=== PATIENT | female | born 1980 | race Caucasian/White ===

== ENCOUNTER 2018-02-08 13:20 | Emergency (ER) | payer OTHER ==
[~2018-02-08] VITALS: Ht 144.8 cm; Wt 99.8 kg
[~2018-02-08 13:20] MED LIST: ADVAIR HFA 230M12 GM INH; ALBUTEROL2.5 MG/0.1 INH; ENOXAPARIN40 MG/0.1 SUBQ; HYDROCODONE-AP1 EAC6 PO; IBUPROFEN 600600 M1 PO; KEFLEX500 M1 PO; LIORESAL 10 MG10 MG PO; MIRALAX17 GM PO; ONDANSETRON HCL4 M2 PO; OXYCODONE HCL 55 MG PO; PERCOCET 10-321 EACH PO; PERCOCET 5-3251 EACH PO; ROBAXIN 750 MG750 MG PO; TYLENOL325 MG PO; VENTOLIN HFA 1818 GM INH
[2018-02-08] MEDS ORDERED: HYDROCODONE-AP1 EAC6 PO (14:34)
[2018-02-08] MEDS ORDERED: CRUTCHES MISCELL (14:35)
== END 2018-02-08 15:08 | disposition home or self-care (01) ==
LOC: ER 13:20
DX: S93.401A Sprain of unspecified ligament of right ankle, initial encounter (principal); S83.91XA Sprain of unspecified site of right knee, initial encounter; M25.511 Pain in right shoulder; J45.909 Unspecified asthma, uncomplicated; G89.4 Chronic pain syndrome; M19.90 Unspecified osteoarthritis, unspecified site; Z88.1 Allergy status to other antibiotic agents; Z88.0 Allergy status to penicillin; Z88.8 Allergy status to other drugs, medicaments and biological substances; Z91.040 Latex allergy status; W10.9XXA Fall (on) (from) unspecified stairs and steps, initial encounter; Y93.89 Activity, other specified; Y92.89 Other specified places as the place of occurrence of the external cause; Y99.8 Other external cause status

== ENCOUNTER 2018-12-24 20:16 | Emergency (ER) | payer OTHER ==
[~2018-12-24] VITALS: Ht 147.3 cm; Wt 102.1 kg
[~2018-12-24 20:16] MED LIST changes: +CRUTCHES MISCELL
[2018-12-24] MEDS ORDERED: IBUPROFEN 800800 M1 PO (20:32)
[2018-12-24] MEDS ORDERED: ACETAMINOPHEN500 MG PO (20:32)
[2018-12-24] MEDS ORDERED: MOBIC7.5 MG PO (20:52)
[2018-12-24 21:35] VITALS: BP 147/63
== END 2018-12-24 21:37 | disposition home or self-care (01) ==
LOC: ER 20:16
DX: S83.91XA Sprain of unspecified site of right knee, initial encounter (principal); S93.601A Unspecified sprain of right foot, initial encounter; J45.909 Unspecified asthma, uncomplicated; G89.29 Other chronic pain; L40.50 Arthropathic psoriasis, unspecified; Z96.643 Presence of artificial hip joint, bilateral; Z79.899 Other long term (current) drug therapy; Z88.0 Allergy status to penicillin; Z88.1 Allergy status to other antibiotic agents; Z88.2 Allergy status to sulfonamides; Z91.040 Latex allergy status; W50.2XXA Accidental twist by another person, initial encounter; Y93.61 Activity, american tackle football; Y92.39 Other specified sports and athletic area as the place of occurrence of the external cause; Y99.8 Other external cause status

== ENCOUNTER 2020-07-26 17:01 | Emergency (ER) | payer OTHER ==
[~2020-07-26] VITALS: Ht 144.8 cm; Wt 106.6 kg
[~2020-07-26 17:01] MED LIST changes: +ACETAMINOPHEN500 MG PO; +IBUPROFEN 800800 M1 PO; +MOBIC7.5 MG PO
[2020-07-26] MEDS ORDERED: METHOCARBAMOL500 M2 PO (17:12)
[2020-07-26] MEDS ORDERED: HYDROCODON-ACE1 EAC7 PO (17:13)
[2020-07-26] MEDS ORDERED: CYCLOBENZAPRINE10 MG PO (17:13)
[2020-07-26] MEDS ORDERED: BUSPIRONE HCL10 MG PO (17:13)
[2020-07-26] MEDS ORDERED: REMERON 30 MG T30 M1 PO (17:14)
[2020-07-26] MEDS ORDERED: SERTRALINE HCL100 MG PO (17:14)
[2020-07-26] MEDS ORDERED: ABILIFY 2 MG2 M1 PO (17:16)
[2020-07-26] MEDS ORDERED: FEOSOL325 M1 PO (17:17)
[2020-07-26] MEDS ORDERED: DESYREL150 MG PO (17:19)
[2020-07-26 20:13] VITALS: BP 130/0
== END 2020-07-26 20:10 | disposition home or self-care (01) ==
LOC: ER 17:01
DX: M25.552 Pain in left hip (principal); M25.572 Pain in left ankle and joints of left foot; M25.562 Pain in left knee; J45.909 Unspecified asthma, uncomplicated; Z79.899 Other long term (current) drug therapy; Z79.1 Long term (current) use of non-steroidal anti-inflammatories (NSAID); Z88.0 Allergy status to penicillin; Z88.1 Allergy status to other antibiotic agents; Z88.2 Allergy status to sulfonamides; Z91.040 Latex allergy status

== ENCOUNTER 2021-09-13 23:40 | Emergency (ER) | payer OTHER ==
[~2021-09-13] VITALS: Ht 157.5 cm; Wt 129.9 kg
--- NOTE | ~2021-09-13 | EMS ---
[facility] [address] [place] [address] EMS Patient Care Report Name: KEVIN GREEN [id number] Admission: 09/13/21 Attend Phys: Discharge: Date of : 80 Report #: [id number] THIS REPORT FOR: //name// Report Transmitted: 09/14/2021 00:01 EMS Care Summary [place], [place]/[facility] Incident [id number] @ 09/13/2021 23:12 Incident Location [address] [place] [address] Patient KEVIN GREEN Female, 40 Years 1980 Patient Address Chief Complaint skin rash Disposition Transported No Lights/[place] Dispatch Reason Sick Person Transported To [facility] Narrative pt found ambulatory in the lobby. she is a&o, c/o pain in joints and skin rash x 2 days. pt denies eating anything she is allergic to, or exposure to a new product she could be allergic to. she req eval at closest ER. pt is able to seat self on cot, VS, transport w/o change. report to staff . Initial Vitals @23:27P: 93,R: 18,BP: 128/73,Pain: 7/10,GCS: 15,SpO2: 98,Revised Trauma: 12, Assessments @23:20MENTAL:No Abnormalities,SKIN:Other,HEENT:Head/Face: No Abnormalities,LUNG SOUNDS:ABDOMEN:PELVIS//GI:EXTREMITIES:PULSE:NEURO:No Abnormalities, Impression [facility] [address] [place] [address] EMS Patient Care Report Name: KEVIN GREEN Room #: REG [facility]#: [id number] Admission: 09/13/21 Attend Phys: Discharge: Date of : 80 Report #: [id number] Skin infection Procedures @23:20 ALS Assessment @23:25 Stretcher Response: Unchanged Timeline 23:09,Call Received 23:09,Dispatch Notified 23:12,Dispatched 23:12,En Route 23:19,On Scene 23:20,At Patient 23:20,ALS Assessment, 23:25,Stretcher,Response: Unchanged 23:27,BP: 128/73 M,PULSE: 93,RR: 18 R,SPO2: 98 Ox,ETCO2: ,BG: ,PAIN: 7,GCS: 15, 23:29,Depart Scene 23:35,At Destination 23:50,Call Closed Disclaimer v1.1 Copyright 2021 [employer] This EMS Care Summary contains data elements from the applicable legal record (which may be displayed differently). It is designed to provide pertinent information for the following purposes: continuity of care, clinical quality, and state data reporting. The complete legal record is available to ED staff and administrators of the receiving hospital in [employer] Patient Tracker. All data is provided "as is."
--- NOTE | ~2021-09-13 | EMS ---
[facility] [address] [place] [address] EMS Patient Care Report Name: KEVIN GREEN Room #: [facility] Diane#: [id number] Admission: 09/13/21 Attend Phys: Discharge: 09/14/21 Date of : 80 Report #: [id number] THIS REPORT FOR: //name// Report Transmitted: 09/14/2021 06:43 EMS Care Summary [place], [place]/[facility] Incident [id number] @ 09/13/2021 23:12 Incident Location [address] [place] [address] Patient KEVIN GREEN Female, 40 Years 1980 Patient Address Chief Complaint skin rash Disposition Transported No Lights/[employer] Dispatch Reason Sick Person Transported To [facility] Narrative pt found ambulatory in the lobby. she is a&o, c/o pain in joints and skin rash x 2 days. pt denies eating anything she is allergic to, or exposure to a new product she could be allergic to. she req eval at closest ER. pt is able to seat self on cot, VS, transport w/o change. report to staff . Initial Vitals @23:27P: 93,R: 18,BP: 128/73,Pain: 7/10,GCS: 15,SpO2: 98,Revised Trauma: 12, Assessments @23:20MENTAL:No Abnormalities,SKIN:Other,HEENT:Head/Face: No Abnormalities,LUNG SOUNDS:ABDOMEN:PELVIS//GI:EXTREMITIES:PULSE:NEURO:No Abnormalities, Impression [facility] [address] [place] [address] EMS Patient Care Report Name: KEVIN GREEN Room #: [facility]#: [id number] Admission: 09/13/21 Attend Phys: Discharge: 09/14/21 Date of : 80 Report #: [id number] Skin infection Procedures @23:20 ALS Assessment @23:25 Stretcher Response: Unchanged Timeline 23:09,Call Received 23:09,Dispatch Notified 23:12,Dispatched 23:12,En Route 23:19,On Scene 23:20,At Patient 23:20,ALS Assessment, 23:25,Stretcher,Response: Unchanged 23:27,BP: 128/73 M,PULSE: 93,RR: 18 R,SPO2: 98 Ox,ETCO2: ,BG: ,PAIN: 7,GCS: 15, 23:29,Depart Scene 23:35,At Destination 23:50,Call Closed Disclaimer v1.1 Copyright 2021 [employer] This EMS Care Summary contains data elements from the applicable legal record (which may be displayed differently). It is designed to provide pertinent information for the following purposes: continuity of care, clinical quality, and state data reporting. The complete legal record is available to ED staff and administrators of the receiving hospital in [employer]'s Patient Tracker. All data is provided "as is."
[~2021-09-13 23:40] MED LIST changes: +ABILIFY 2 MG2 M1 PO; +BUSPIRONE HCL10 MG PO; +CYCLOBENZAPRINE10 MG PO; +DESYREL150 MG PO; +FEOSOL325 M1 PO; +HYDROCODON-ACE1 EAC7 PO; +METHOCARBAMOL500 M2 PO; +REMERON 30 MG T30 M1 PO; +SERTRALINE HCL100 MG PO
[2021-09-14 01:08] LABS: ABSOLUTE NEUTROPHILS 3.4 thou/uL (1.4-8.2); BASOPHILS 1.1 % (0.0-2.0); EOSINOPHILS 1.3 % (0.0-3.0); HEMATOCRIT 36.4 % (37.0-47.0); HEMOGLOBIN 11.3 gm/dL (12.0-15.0); LYMPHOCYTES 41.9 % (24.0-44.0); MCH 25.7 pg (26.0-34.0); MCHC 31.1 g/dL (28.0-37.0); MCV 82.5 fL (80.0-100.0); PLATELET COUNT 119 thou/uL (150-400); POLYS 49.7 % (36.0-66.0); RBC 4.41 mil/uL (4.20-5.00); RDW 17.4 % (10.5-14.5); WBC 6.9 thou/uL (4.0-11.0)
[2021-09-14 01:12] LABS: CALCIUM 8.9 mg/dL (8.5-10.1); CREATININE 0.7 mg/dL (0.6-1.0)
[2021-09-14 01:14] LABS: POTASSIUM 4.4 mmol/L (3.5-5.1)
[2021-09-14 01:18] LABS: ALBUMIN 3.3 g/dL (3.4-5.0); TOTAL BILIRUBIN 0.2 mg/dL (0.2-1.0); TOTAL PROTEIN 6.7 g/dL (6.4-8.2)
[2021-09-14] MEDS ORDERED: PREDNISONE 20 M20 MG PO (01:27)
[2021-09-14 01:53] VITALS: BP 142/76
== END 2021-09-14 07:37 | disposition home or self-care (01) ==
LOC: ER 23:40
PROVIDERS: Emergency Medicine
DX: T14.8XXA Other injury of unspecified body region, initial encounter (principal); Z20.822 Contact with and (suspected) exposure to COVID-19; R21 Rash and other nonspecific skin eruption; J45.909 Unspecified asthma, uncomplicated; Z90.89 Acquired absence of other organs; Z79.899 Other long term (current) drug therapy; Z91.040 Latex allergy status; Z88.0 Allergy status to penicillin; Z88.2 Allergy status to sulfonamides; Z88.8 Allergy status to other drugs, medicaments and biological substances